=== PATIENT | female | born 1940 | race Caucasian/White ===

== ENCOUNTER 2024-09-11 19:13 | Inpatient (IN) ==
[2024-09-11] MEDS: Acetaminophen IV 1 GM/100ML 1,000 MG/100 ML BAG IV ONE (19:57)
[2024-09-11 20:02] LABS: Activated Partial Thrombo Time 28.4 seconds (26.0-38.0); INR 0.99 (0.85-1.14)
[2024-09-11 20:03] LABS: ABS Basophils 0.1 10^3/uL (0.0-0.1); ABS Eosinophils 0.5 10^3/uL (0.0-0.5); ABS Lymphocytes 2.4 10^3/uL (1.0-4.8); ABS Monocytes 1.2 10^3/uL (0.0-0.9); ABS Neutrophils 7.3 10^3/uL (1.5-7.6); ABS Nucleated RBC 0.01 10^3/ul; Eosinophil % 4.7 %; Hematocrit 41.1 % (35-45); Hemoglobin 13.8 g/dL (11.5-14.3); Lymphocyte % 20.9 %; Mean Corpuscular Hemoglobin 31.1 pg (27-33); Mean Corpuscular Hgb Conc 33.6 g/dL (31-36); Mean Corpuscular Volume 92.6 fL (80-97); Mean Platelet Volume 8.9 fL (7.5-11.2); Nucleated Red Blood Cells % 0.1 %/100WBC (0.0-0.8); Platelet Count 175 10^3/uL (150-450); Red Blood Count 4.44 10^6/uL (3.63-4.92); Red Cell Distribution Width 15.7 % (12-17); White Blood Count 11.5 10^3/uL (3.8-11.8)
[2024-09-11 20:34] LABS: Albumin 4.6 g/dL (3.5-5.7); Albumin/Globulin Ratio 1.5 (1-3); Calcium 10.1 mg/dL (8.6-10.3); Creatinine, Serum 1.09 mg/dL (0.51-0.95); Globulin 3.1 g/dL (2-4); Total Bilirubin 0.4 mg/dL (0.2-1.0); Total Protein 7.7 g/dL (6.4-8.9); eGFR CKD-EPI 50.4 (>60)
[2024-09-11 21:43] LABS: Urine Appearance Turbid; Urine Bilirubin Negative (Negative); Urine Blood Trace (Negative); Urine Color Colorless; Urine Glucose Negative (Negative); Urine Ketones Negative (Negative); Urine Nitrite 2+ (Negative); Urine Protein 1+ (>=30 mg/dL) (Negative); Urine Specific Gravity 1.009 (1.002-1.030); Urine Urobilinogen Negative (Negative); Urine pH 6.5 (5.0-8.0)
[2024-09-11 21:52] LABS: Urine Bacteria 1+ /HPF (Absent); Urine Red Blood Cell 1+(3-5/hpf) /HPF (0-Trace); Urine Squamous Epithelial Cell Present /HPF (Absent); Urine White Blood Cell 3+(>20/hpf) /HPF (0-Trace)
[2024-09-11] MEDS: cefTRIAXone 1 gm/50 mL D5W 1 GM/50 ML BAG IV ONE (21:57)
[2024-09-11] MEDS: Iodixanol 320 (CONTRAST) 100 ML SDV IV ONE (22:55)
[2024-09-12] MEDS ORDERED: Dextrose 50% Syringe 50 ml 25 GM/50 ML SYRINGE IV PUSH PRN (01:02)
[2024-09-12] MEDS ORDERED: Senna TAB 8.6 mg TAB PO PRN (06:34)
[2024-09-12] MEDS: Heparin 5000 UNITS/ML 1 mL VIAL SUBCUT SCH (09:15)
[2024-09-12] MEDS: Insulin GLARGINE 100 un/ml 10 ml VIAL SUBCUT SCH (10:13)
[2024-09-12] MEDS: Enoxaparin 40 MG/0.4 ML SYR SUBCUT SCH (22:33)
[2024-09-12] MEDS: cefTRIAXone 1 gm/50 mL D5W 1 GM/50 ML BAG IV SCH ×2 (22:52→22:53)
[2024-09-14] MEDS: Magnesium Hydroxide LIQ 30 ML UDC PO SCH (09:39)
[2024-09-14] MEDS: Polyethylene Glycol 3350 17 GM PACKET PO ONE (09:39)
[2024-09-14 12:36] LABS: Rapid COVID-19 Molecular Undetected (Undetected)
[2024-09-14 14:45] VITALS: BP 125/80
== END 2024-09-14 14:39 | DRG 551 ==
LOC: EDHOLD 19:13 → ED 19:13 → OBSVTOIN 23:52 → INTOOBSV 23:52 → SUATTDRO 23:52 → MEDTELE 09-12 14:58
PROVIDERS: ADMIT Internal Medicine; ATTEND Internal Medicine